=== PATIENT | male | born 1990 | race American Indian/Alaskan Native ===

== ENCOUNTER 2018-12-28 07:12 | Emergency (ER) | payer MEDICAID ==
--- NOTE | 2018-12-28 07:41 | EDM.PDOC ---
ED HPI GENERAL MEDICAL PROBLEM - General Chief Complaint: ENT Problem Stated Complaint: SORE THROAT/FEVER Time Seen by Provider: 12/28/18 07:30 Source of Information: Reports: Patient History Limitations: Reports: No Limitations - History of Present Illness INITIAL COMMENTS - FREE TEXT/NARRATIVE: 28-year-old male with a sore throat for the past 4 days, intermittent fevers. No cough or rhinitis. He is developing a headache. Onset: Gradual Duration: Day(s): (4 days) Associated Symptoms: Reports: Fever/Chills. Denies: Chest Pain, Cough, Nausea/ Vomiting, Shortness of Breath Throat Pain Score (Numeric/FACES): 6 - Related Data Allergies Allergy/AdvReac Type Severity Reaction Status Date / Time No Known Allergies Allergy Verified 04/24/14 20:57 Home Meds: Home Meds Acetaminophen [Tylenol] 325 mg PO Q4H PRN 12/28/18 [History] Past Medical History HEENT History: Reports: Other (See Below) Other HEENT History: sore throat for 4 days Social & Family History - Tobacco Use Smoking Status *Q: Current Every Day Smoker Years of Tobacco use: 10 Packs/Tins Daily: 1 - Caffeine Use Caffeine Use: Reports: Coffee - Recreational Drug Use Recreational Drug Use: No ED ROS ENT - Review of Systems Review Of Systems: See Below Constitutional: Reports: Fever, Chills, Malaise, Decreased Appetite HEENT: Reports: Throat Pain Respiratory: Denies: Shortness of Breath, Cough Cardiovascular: Denies: Chest Pain GI/Abdominal: Reports: Difficulty Swallowing. Denies: Abdominal Pain, Nausea, Vomiting Skin: Reports: No Symptoms Neurological: Reports: Headache Psychiatric: Reports: No Symptoms ED EXAM, ENT - Physical Exam Exam: See Below Exam Limited By: No Limitations General Appearance: Alert, Mild Distress (Looks fairly uncomfortable) Ears: Normal TMs Mouth/Throat: Pharyngeal Erythema, Tonsillar Exudates. No: Peritonsillar Mass, Uvular Deviation Neck: No: Lymphadenopathy (R), Lymphadenopathy (L) Respiratory/Chest: No Respiratory Distress, Lungs Clear Course - Vital Signs Last Recorded V/S: Last Vital Signs Temp 98 F 12/28/18 07:22 Pulse 73 12/28/18 07:22 Resp 18 12/28/18 07:22 BP 153/87 H 02/25/19 07:22 Pulse Ox - Re-Assessments/Exams Free Text/Narrative Re-Assessment/Exam: 12/28/18 07:40 A rapid strep was obtained. 12/28/18 08:07 Strep was positive. Patient was placed on penicillin VK 4 times a day for at least 7 days, given 10 Vicodin for extra pain control, and a work note for the next 2 days. He'll return if his pain is persistent, especially on one side. Departure - Departure Time of Disposition: 08:19 Disposition: Home, Self-Care 01 Condition: Fair Clinical Impression: Strep pharyngitis - Discharge Information Instructions: Strep Throat, [id number] Referrals: PCP,None [Primary Care Provider] - Forms: ED Department Discharge Care Plan Goals: Take antibiotic 4 times a day for at least 7 days. Ibuprofen or naproxen will help with pain, and add stronger pain medications if needed. Rest, fluids, and recheck if pain is worsening especially on one side.
== END 2018-12-28 08:20 | disposition home or self-care (01) ==
LOC: JP.ED 07:12
DX: J02.0 Streptococcal pharyngitis (principal); F17.210 Nicotine dependence, cigarettes, uncomplicated
CPT/HCPCS: 87430; 99283

== ENCOUNTER 2019-03-21 22:36 | Emergency (ER) | payer SELFPAY ==
--- NOTE | 2019-03-21 23:22 | CRLCR ---
Indication: Crush injury. Technique: Three views of the right hand were obtained. Comparison: None Findings: A comminuted fracture of the distal 5th metacarpal is identified. There is proximally 60 degrees of angulation with that vertex posterior. No other fractures are identified. Impression: Distal 5th metacarpal fracture. Dictated by Sapna Thurman MD @ Mar 21 2019 11:20PM Signed by Dr. Sapna Thurman @ Mar 21 2019 11:21PM
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
== END 2019-03-22 00:13 | disposition home or self-care (01) ==
LOC: JP.ED 22:36
DX: S62.336A Displaced fracture of neck of fifth metacarpal bone, right hand, initial encounter for closed fracture (principal); F17.210 Nicotine dependence, cigarettes, uncomplicated; W23.0XXA Caught, crushed, jammed, or pinched between moving objects, initial encounter
CPT/HCPCS: 29125; 73130-RT; 99283-25

== ENCOUNTER 2021-01-04 18:48 | Emergency (ER) | payer SELFPAY ==
--- NOTE | 2021-01-04 21:02 | CRLCT ---
INDICATION: headache CT HEAD WITHOUT CONTRAST TECHNIQUE: Multiple axial CT images were performed through the head without intravenous contrast administration. COMPARISON: No previous studies are currently available for comparison. FINDINGS: No acute intracranial hemorrhage is identified. No extra-axial collections are evident and there is no mass effect or midline shift. Ventricles are normal in size and configuration. Brain parenchyma appears normal with unremarkable johnson-white differentiation. Osseous structures are within normal limits and no fractures are seen. Included portions of the paranasal sinuses and mastoid air cells are normally aerated. IMPRESSION: Normal non-contrast head CT. ERNIE GONZALEZ MD [facility] Dictated by: Reji Gonzalez MD @ 01/04/2021 21:01:35 (Electronically Signed)
--- NOTE | 2021-01-04 21:28 | EDM.PDOC ---
ED HPI GENERAL MEDICAL PROBLEM - General Chief Complaint: Headache Stated Complaint: HEADACH, BLURRED VISION Time Seen by Provider: 01/04/21 20:16 Source of Information: Reports: Patient History Limitations: Reports: No Limitations - History of Present Illness INITIAL COMMENTS - FREE TEXT/NARRATIVE: Nabil is a 30-year-old male presenting to the ED for evaluation of recurrent head ache starting over the left occipital region and going over the top of the head. He has had 3-4 in short succession today each lasting about 3 to 5 minutes. His last episode occurred while he was urinating and caused a mild vasovagal episode with increased diaphoresis, nausea, and lightheadedness with blurred vision. Headaches seem to be predominantly on the left side and starting just above the occipital knob. He does have alopecia in this area suggesting some underlying inflammatory process. There is tenderness to percussion over this area as well reproducing the symptoms. The patient denies any trauma. He has no history of significant headaches in the past although he does get these frequently over the last several months. Averages several headaches a week. They are not usually associated with vision changes or nausea or vomiting. headache Pain Score (Numeric/FACES): 1 - Related Data Allergies Allergy/AdvReac Type Severity Reaction Status Date / Time No Known Allergies Allergy Verified 01/04/21 19:57 Home Meds: Home Meds NK [No Known Home Meds] 03/21/19 [History] Past Medical History HEENT History: Reports: Other (See Below) Other HEENT History: sore throat for 4 days Cardiovascular History: Reports: None Respiratory History: Reports: None Gastrointestinal History: Reports: None Genitourinary History: Reports: None Musculoskeletal History: Reports: Other (See Below) Other Musculoskeletal History: right boxers FX Neurological History: Reports: None Psychiatric History: Reports: None Endocrine/Metabolic History: Reports: None Hematologic History: Reports: None Immunologic History: Reports: None Oncologic (Cancer) History: Reports: None Dermatologic History: Reports: None - Past Surgical History Head Surgeries/Procedures: Reports: None Musculoskeletal Surgical History: Reports: None Social & Family History - Tobacco Use Tobacco Use Status *Q: Current Every Day Tobacco User Years of Tobacco use: 10 Packs/Tins Daily: 1 - Caffeine Use Caffeine Use: Reports: Energy Drinks, Soda - Alcohol Use Days Per Week of Alcohol Use: 2 Number of Drinks Per Day: 8 Total Drinks Per Week: 16 - Recreational Drug Use Recreational Drug Use: Yes Recreational Drug Type: Reports: Marijuana/Hashish Recreational Drug Use Frequency: Weekly ED ROS GENERAL - Review of Systems Review Of Systems: See Below Constitutional: Reports: No Symptoms HEENT: Reports: Vision Change (Blurred vision today while urinating with a headache) Respiratory: Reports: No Symptoms Cardiovascular: Reports: No Symptoms Endocrine: Reports: No Symptoms GI/Abdominal: Reports: No Symptoms : Reports: No Symptoms Musculoskeletal: Reports: No Symptoms Skin: Reports: No Symptoms Neurological: Reports: Headache (Left occipital) Psychiatric: Reports: No Symptoms Hematologic/Lymphatic: Reports: No Symptoms Immunologic: Reports: No Symptoms - Physical Exam Exam: See Below Exam Limited By: No Limitations General Appearance: Alert, No Apparent Distress Eye Exam: Bilateral Eye: EOMI, PERRL Ears: Normal External Exam Nose: Normal Inspection Throat/Mouth: Normal Inspection, Normal Lips, Normal Oropharynx, Normal Voice Head Exam: Atraumatic, Normocephalic, Other (Alopecia left occipital scalp. Tenderness with percussion and palpation over the left occipital knob reproducing headache symptoms.) Neck: Normal Inspection, Supple, Non-Tender, Full Range of Motion Respiratory/Chest: No Respiratory Distress, Lungs Clear, Normal Breath Sounds Cardiovascular: Normal Peripheral Pulses, Regular Rate, Rhythm, No Murmur GI/Abdominal: Normal Bowel Sounds, Soft, Non-Tender Neuro Exam (Abbreviated): Alert, Oriented, CN II-XII Intact, Normal Cognition, Normal Gait, No Motor/Sensory Deficits Back Exam: Normal Inspection, Full Range of Motion Extremities: Normal Inspection, Normal Range of Motion Psychiatric: Normal Affect, Normal Mood Skin Exam: Warm, Dry, Intact, Normal Color Course - Vital Signs Last Recorded V/S: Last Vital Signs Temp 36.1 C 01/04/21 19:56 Pulse 63 01/04/21 19:56 Resp 20 01/04/21 19:56 BP 137/65 01/04/21 19:56 Pulse Ox 99 01/04/21 19:56 - Orders/Labs/Meds Labs: Laboratory Tests 01/04/21 01/04/21 Range/Units 20:44 20:44 WBC 12.4 H (4.5-11.0) K/uL RBC 5.25 (4.30-5.90) M/uL Hgb 16.1 H (12.0-15.0) g/dL Hct 47.4 (40.0-54.0) % MCV 90 (80-98) fL MCH 31 (27-31) pg MCHC 34 (32-36) % Plt Count 275 (150-400) K/uL Neut % (Auto) 64 (36-66) % Lymph % (Auto) 26 (24-44) % [place] % (Auto) 8 H (2-6) % Eos % (Auto) 1 L (2-4) % Baso % (Auto) 1 (0-1) % Sodium 143 (140-148) mmol/L Potassium 4.2 (3.6-5.2) mmol/L Chloride 106 (100-108) mmol/L Carbon Dioxide 28 (21-32) mmol/L Anion Gap 8.6 (5.0-14.0) mmol/L BUN 13 (7-18) mg/dL Creatinine 0.8 (0.8-1.3) mg/dL Est Cr Clr Drug Dosing 153.97 mL/min Estimated GFR (MDRD) > 60 (>60) Glucose 94 (74-106) mg/dL Calcium 9.3 (8.5-10.1) mg/dL Total Bilirubin 0.4 (0.2-1.0) mg/dL AST 44 H (15-37) U/L ALT 126 H (12-78) U/L Alkaline Phosphatase 103 (46-116) U/L C-Reactive Protein 0.28 (0.0-0.3) mg/dL Total Protein 7.1 (6.4-8.2) g/dL Albumin 3.9 (3.4-5.0) g/dL Globulin 3.2 (2.3-3.5) g/dL Albumin/Globulin Ratio 1.2 (1.2-2.2) - Re-Assessments/Exams Free Text/Narrative Re-Assessment/Exam: 01/04/21 21:[address] of the head which was unremarkable for any acute findings. Patient's labs were also unremarkable including a CBC, comprehensive metabolic panel, and CRP. Appears to be an occipital neuralgia or occipital headache. We discussed management of it using naproxen or other NSAIDs to reduce inflammation. In addition, the patient has alopecia just over the occipital area where the headache initiates possibly signifying some underlying inflammatory process in the scalp. This would certainly contribute to the irritation of this nerve. At this time the patient is suitable for discharge home. Indications return to the ED were discussed. All questions were answered prior to discharge. Departure - Departure Time of Disposition: 21:23 Disposition: Home, Self-Care 01 Clinical Impression: Recurrent occipital headache Occipital neuralgia Qualifiers: Laterality: left Qualified Code(s): M54.81 - Occipital neuralgia - Discharge Information *PRESCRIPTION DRUG MONITORING PROGRAM REVIEWED*: Not Applicable *COPY OF PRESCRIPTION DRUG MONITORING REPORT IN PATIENT CLAUDINE: Not Applicable Instructions: Occipital Neuralgia, General Headache Without Cause, [id number] Referrals: PCP,None [Primary Care Provider] - Care Plan Goals: I would recommend the use of naproxen (Aleve) 2 tablets up to twice daily for your recurrent headaches. These are likely due to inflammation of the occipital nerve. Naproxen is the strongest vzuz-css-suywxfp anti-inflammatory which should help reduce not only the frequency of the headache, but also the severity. Your work-up today has been unremarkable for other causes for the headache. These are not classic migraine type symptoms. Sepsis Event Note (ED) - Evaluation Sepsis Screening Result: No Definite Risk - Focused Exam Vital Signs: Vital Signs Temp Pulse Resp BP Pulse Ox 01/04/21 19:56 36.1 C 63 20 137/65 99 - Problem List & Annotations (1) Occipital neuralgia SNOMED Code(s): 61630959 Code(s): M54.81 - OCCIPITAL NEURALGIA Status: Acute Priority: Medium Current Visit: Yes Qualifiers: Laterality: left Qualified Code(s): M54.81 - Occipital neuralgia (2) Recurrent occipital headache SNOMED Code(s): 299093, 74472691 Code(s): R51.9 - HEADACHE, UNSPECIFIED Status: Acute Priority: Medium Current Visit: Yes - Problem List Review Problem List Initiated/Reviewed/Updated: Yes
== END 2021-01-04 21:48 | disposition home or self-care (01) ==
LOC: JP.ED 18:48
DX: M54.81 Occipital neuralgia (principal); Z72.0 Tobacco use
CPT/HCPCS: 36415; 70450; 80053; 85025; 86140; 99282; 99284-25

== ENCOUNTER 2021-10-07 13:22 | Emergency (ER) | payer MEDICAID ==
--- NOTE | 2021-10-07 13:59 | EDM.PDOC ---
ED HPI GENERAL MEDICAL PROBLEM - General Chief Complaint: General Stated Complaint: CHEST AND STOMACH PRESSURE Time Seen by Provider: 10/07/21 13:40 Source of Information: Reports: Patient, RN. Denies: Old Records History Limitations: Reports: No Limitations - History of Present Illness INITIAL COMMENTS - FREE TEXT/NARRATIVE: 31 yo male presents with epigastric pain and dark, maroon stools for about 1.5 weeks. He is not dizzy with standing. Has not had Covid vaccines, has not been to the clinic for this. He does smoke, drink ETOH, and consumes quite a bit of soda pop. No pHx of PUD. No nausea or vomiting. No self tx. Has a pHx of hemorrhoids. Onset: Gradual Onset Date: 09/27/21 Duration: Day(s): (10+), Constant Location: Reports: Abdomen Quality: Reports: Pressure Severity: Mild Improves with: Reports: None Worsens with: Reports: None Context: Reports: Other (See HPI) Associated Symptoms: Reports: Other (? 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) (none) - Related Data Allergies Allergy/AdvReac Type Severity Reaction Status Date / Time No Known Allergies Allergy Verified 01/04/21 19:57 Home Meds: Home Meds NK [No Known Home Meds] 03/21/19 [History] Past Medical History HEENT History: Reports: Other (See Below) Other HEENT History: sore throat for 4 days Cardiovascular History: Reports: None Respiratory History: Reports: None Gastrointestinal History: Reports: None Genitourinary History: Reports: None Musculoskeletal History: Reports: Other (See Below) Other Musculoskeletal History: right boxers FX Neurological History: Reports: None Psychiatric History: Reports: None Endocrine/Metabolic History: Reports: None Hematologic History: Reports: None Immunologic History: Reports: None Oncologic (Cancer) History: Reports: None Dermatologic History: Reports: None - Past Surgical History Head Surgeries/Procedures: Reports: None Musculoskeletal Surgical History: Reports: None Social & Family History - Tobacco Use Tobacco Use Status *Q: Current Every Day Tobacco User Years of Tobacco use: 15 Packs/Tins Daily: 1 - Caffeine Use Caffeine Use: Reports: Soda - Recreational Drug Use Recreational Drug Use: Yes Drug Use in Last 12 Months: Yes Recreational Drug Type: Reports: Marijuana/Hashish Recreational Drug Use Frequency: Daily ED ROS GENERAL - Review of Systems Review Of Systems: See Below Constitutional: Reports: No Symptoms HEENT: Reports: No Symptoms Respiratory: Reports: No Symptoms Cardiovascular: Reports: No Symptoms GI/Abdominal: Reports: Abdominal Pain (epigastric), Bloody Stool (dark red). Denies: Constipation, Diarrhea, Hematemesis, Nausea, Vomiting : Reports: No Symptoms Musculoskeletal: Reports: No Symptoms Skin: Reports: No Symptoms Neurological: Reports: No Symptoms ED EXAM, GENERAL - Physical Exam Exam: See Below Exam Limited By: No Limitations General Appearance: Alert, WD/WN, No Apparent Distress, Obese Eye Exam: Bilateral Eye: Normal Inspection Ears: Normal External Exam, Normal Canal, Hearing Grossly Normal, Normal TMs Ear Exam: Bilateral Ear: Auricle Normal, Canal Normal, TM normal, Other (no conjuncival pallor) Nose: Normal Inspection, No Blood Throat/Mouth: Normal Inspection, Normal Lips, Normal Oropharynx, Normal Voice, No Airway Compromise Head: Atraumatic, Normocephalic Neck: Normal Inspection Respiratory/Chest: No Respiratory Distress, Lungs Clear, Normal Breath Sounds, No Accessory Muscle Use Cardiovascular: Regular Rate, Rhythm, No Edema GI/Abdominal: Normal Bowel Sounds, Soft, No Distention, Tender (epigastrium). No: Non-Tender, Distended Back Exam: Normal Inspection. No: CVA Tenderness (R), CVA Tenderness (L) Extremities: Normal Inspection, Normal Range of Motion, Non-Tender, No Pedal Edema Neurological: Alert, Oriented, CN II-XII Intact, Normal Cognition, No Mo tor/Sensory Deficits Psychiatric: Normal Affect, Normal Mood Skin Exam: Warm, Dry, Intact, Normal Color, No Rash Course - Vital Signs Last Recorded V/S: Last Vital Signs Temp 36.5 C 10/07/21 14:30 Pulse 80 10/07/21 14:30 Resp 18 10/07/21 14:30 BP 140/79 10/07/21 14:30 Pulse Ox 96 10/07/21 14:30 Departure - Departure Time of Disposition: 14:55 Disposition: Home, Self-Care 01 Condition: Fair Clinical Impression: Gastritis Qualifiers: Gastritis type: unspecified gastritis Chronicity: acute Gastritis bleeding: without bleeding Qualified Code(s): K29.00 - Acute gastritis without bleeding - Discharge Information *PRESCRIPTION DRUG MONITORING PROGRAM REVIEWED*: Not Applicable *COPY OF PRESCRIPTION DRUG MONITORING REPORT IN PATIENT CLAUDINE: Not Applicable Instructions: Gastritis, Adult, [id number] Referrals: PCP,None [Primary Care Provider] - Forms: ED Department Discharge Additional Instructions: Take famotidine 40 mg every day for the next month. Use acetaminophen as needed for pain relief. Recheck with a doctor of your choice in the next month. Avoid: ibuprofen, aspirin, Aleve, alcohol, tobacco, carbonated beverages, and caffeine. Sepsis Event Note (ED) - Focused Exam Vital Signs: Vital Signs Temp Pulse Resp BP Pulse Ox 10/07/21 14:30 36.5 C 80 18 140/79 96 10/07/21 13:38 36.5 C 80 18 140/79 96
== END 2021-10-07 15:04 | disposition home or self-care (01) ==
LOC: JP.ED 13:22
DX: K29.00 Acute gastritis without bleeding (principal); Z72.0 Tobacco use
CPT/HCPCS: 82272; 99284

== ENCOUNTER 2023-04-26 20:25 | Emergency (ER) | payer MEDICAID ==
[2023-04-26] MEDS ORDERED: Bupivacaine 0.5%/EPINEPHrine 1:200,000 1.8 ML Cartridge INJECT ONE (20:44)
== END 2023-04-26 21:15 | disposition home or self-care (01) ==
LOC: JP.ED 20:25 → EEVIPCON 20:25 → JP.ED 21:15
DX: S02.5XXB Fracture of tooth (traumatic), initial encounter for open fracture (principal); K04.7 Periapical abscess without sinus; K02.62 Dental caries on smooth surface penetrating into dentin; W19.XXXA Unspecified fall, initial encounter
CPT/HCPCS: 64400; 99282; J3490